=== PATIENT | male | born 1990 | race Caucasian/White ===

== ENCOUNTER 2019-02-17 16:45 | Emergency (ER) | payer SELFPAY ==
[~2019-02-17] VITALS: Ht 180.3 cm; Wt 92.5 kg
[~2019-02-17 16:45] MED LIST: EPIN0.3P IM; EPIPEN 2-P0.3 MG/0.3 IM
[2019-02-17] MEDS ORDERED: MUCINEX600 MG PO (17:01)
[2019-02-17] MEDS ORDERED: ACETAMINOPHEN500 MG PO (17:01)
[2019-02-17] MEDS ORDERED: DAY TIME COLD-1 EAC1 PO (17:01)
[2019-02-17] MEDS ORDERED: ZITHROMAX250 MG PO (19:05)
[2019-02-17] MEDS ORDERED: PREDNISONE20 MG PO (19:05)
== END 2019-02-17 19:28 | disposition home or self-care (01) ==
LOC: ED 16:45
DX: J40 Bronchitis, not specified as acute or chronic (principal); F17.200 Nicotine dependence, unspecified, uncomplicated; Z88.8 Allergy status to other drugs, medicaments and biological substances; Z79.899 Other long term (current) drug therapy
CPT/HCPCS: 71046; 99283-25; J1100